=== PATIENT | male | born 1955 | race Caucasian/White ===

== ENCOUNTER 2018-05-05 18:08 | Emergency (ER) | payer OTHER ==
--- NOTE | 2018-05-05 18:44 | EDPHY ---
H & P Time Seen by Provider: 05/05/18 18:21 HPI/ROS: CLINICAL IMPRESSION: Left 2nd and 3rd finger lacerations ASSESSMENT/PLAN: 62-year-old male with a history of atrial fibrillation, anticoagulated on Eliquis, presents to the emergency department with acute lacerations to the distal tips of the left 2nd and 3rd fingers after accidentally cutting himself with scissors. Distal 2 point discrimination and neurovascular exam intact. No clinical signs of deep vessel or tendon injury. Sutures placed to the tip of the 2nd finger as per chart notes. Silver nitrate and Surgicel applied to an avulsion laceration on the tip of the 3rd finger. Dressings applied. Wound care discussed, PCP follow-up encouraged, warning signs for return to ED sooner outlined and discharge. DIFFERENTIAL DIAGNOSIS: includes but not limited to laceration of tendon or vascular structure, underlying fracture, laceration with retained FB ED PROCECURES: Laceration Repair Verbal consent obtained by patient. Risks discussed, including but not limited to infection, pain, retained foreign body, need for additional repair, poor cosmetic result, tendon damage, nerve damage, poor wound healing, vascular damage. Alternatives to repair discussed. [place] protocol used to establish correct patient, procedure, equipment, arch support technician, and site. Anesthesia obtained by digital block to the left 2nd and 3rd fingers at the PIP joint. Anesthetized with 0.5% bupivacaine without epinephrine. Laceration location left 2nd and 3rd fingertips, length 0.5 cm, depth 2 mm, Repair type simple. Patient was prepped and draped in usual sterile fashion. Hemostasis achieved with direct pressure. Wound explored through full range of motion and entire depth of wound probed and visualized with gloved finger. No suspicion for nerve damage, tendon damage, underlying fracture, vascular damage, foreign body, or contamination. Area was cleansed with Shur-Clens and irrigated with sterile saline as per protocol. No foreign body or material removed. Repair method 5 0 Prolene to tip of left 2nd finger. Five sutures placed. Well aligned, closely approximated. wound was dressed with Surgicel and Band-Aids. Patient tolerated well with no immediate complications. The tip of the left 3rd finger was not amenable to sutures and was cleaned and dressed with silver nitrate, Surgicel and Band-Aids Wound care: Clean and dry x 24 hours, gently clean with soap and water, cover with topical antibiotic ointment/bandage. Suture/Staple removal: 7-10 Days CHIEF COMPLAINT: Laceration HPI: 62-year-old male with a history of atrial fibrillation on Eliquis presents to the emergency department with lacerations to the tips of the 2nd and 3rd finger on the left hand after he was cutting electrical tape and slipped with the scissors cutting his fingers. Patient denies sensory loss or difficulty with range of motion. He has no other injuries. His tetanus is up-to-date. 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 PHYSICAL EXAM: General Appearance: Alert, oriented, appropriate for age, cooperative, NAD, well hydrated, non-toxic appearing, VSS, no hypoxia. Neurological: Alert and oriented x 3 Skin: Avulsion laceration to the distal tip of the 3rd finger. 0.5 cm laceration to the distal tip of the left 2nd finger. Distal 2 point discrimination and neurovascular exam is intact. Range of motion intact. Musculoskeletal: Full range of motion of all fingers and hand. No evidence of vascular or tendon injury MEDICAL DECISION MAKING: Patient was seen independently. Secondary supervising physician at time of evaluation was Dr. Aggarwal. Diagnosis: Laceration to left 2nd and 3rd fingers. New, requires workup Summary: See assessment and plan for summary of ED visit Patient Progress improved. Smoking Status: Never smoked Constitutional: Initial Vital Signs Temperature (C) 36.7 C 05/05/18 18:13 Heart Rate 86 05/05/18 18:13 Respiratory Rate 16 05/05/18 18:13 Blood Pressure 165/89 H 05/05/18 18:13 O2 Sat (%) 95 05/05/18 18:13 O2 Delivery Mode Room Air Allergies/Adverse Reactions: No Known Allergies Allergy (Unverified 05/05/18 18:11) Home Medications: Medication Instructions Recorded Aspirin EC 81 mg (*) 05/05/18 DIAZEPAM 05/05/18 Eliquis 05/05/18 Lipitor 05/05/18 Nebivolol HCl 05/05/18 Sildenafil Citrate 05/05/18 MDM/Departure - MDM Medications Given: Discontinued Medications Silver Nitrate/Potassium Nitrate (Silver Nitrate Applicator) 1 each TP EDNOW ONE Stop: 05/05/18 19:46 Last Admin: 05/05/18 20:00 Dose: Not Given - Depart Disposition: Home, Routine, Self-Care Clinical Impression: Finger laceration Qualifiers: Encounter type: initial encounter Finger: index finger Damage to nail status: without damage Foreign body presence: without foreign body Laterality: left Qualified Code(s): S61.211A - Laceration without foreign body of left index finger without damage to nail, initial encounter Condition: Good Instructions: Laceration (ED) Additional Instructions: Please have sutures/louie removed in 7-10 Days. You can return to the emergency department or your primary care for suture/staple removal. Avoid submerging sutures/louie underwater for prolonged period of time until removed. Keep wound clean and dry, cover with antibiotic ointment and Band-Aid. Return to emergency department for redness, swelling, discharge, warmth to the skin, or any other concerns for infection. Referrals: Unknown,Unknown [Unknown] - As per Instructions
[2018-05-05] MEDS ORDERED: SILVER NITRATE APPLICATOR 1 APPL TP ONE (19:45)
[2018-05-05 20:01] VITALS: BP 135/78
== END 2018-05-05 20:05 | disposition home or self-care (01) ==
PROC: 0HQGXZZ Repair Left Hand Skin, External Approach (ICD-10-PCS; principal; 2018-05-05)
DX: S61.211A Laceration without foreign body of left index finger without damage to nail, initial encounter (principal); S61.213A Laceration without foreign body of left middle finger without damage to nail, initial encounter; I48.91 Unspecified atrial fibrillation; Z79.01 Long term (current) use of anticoagulants; W26.8XXA Contact with other sharp object(s), not elsewhere classified, initial encounter; Y92.9 Unspecified place or not applicable; Y93.9 Activity, unspecified